=== PATIENT | female | born 1990 | race African-American/Black ===

== ENCOUNTER 2017-03-03 10:39 | Emergency (ER) | payer MEDICAID ==
[~2017-03-03] VITALS: Ht 162.6 cm; Wt 54.4 kg
[~2017-03-03 10:39] MED LIST: ALBUTEROL SULF8.5 GM INH; ALBUTEROL2.5 MG/3 M HHN; AUGMENTIN 875-1 EAC1 ORAL; MUCINEX100 MG PO; NKM; PREDNISONE20 MG ORAL; PROMETH-CODEIN 65 ML PO; PROMETHAZINE-C118 M1 ORAL; ZYRTEC10 MG ORAL
[2017-03-03] MEDS ORDERED: DOXYCYCLINE MO100 MG ORAL (11:25)
--- NOTE | 2017-03-03 11:38 | Diagnostic Imaging Report ---
Indication: COUGH Technique: One view of the chest Comparison: none Findings: Lungs and pleural spaces are clear. Heart size is normal. Impression: No acute process
[2017-03-03] MEDS ORDERED: TESSALON PERLE100 MG ORAL (11:51)
[2017-03-03 12:05] VITALS: BP 127/68
--- NOTE | 2017-03-04 06:47 | Emergency Room Report ---
History of Present Illness General Chief Complaint: Upper Respiratory Illness Source: Patient Present Illness HPI 26 yo female with history of asthma, p/w cough for for days. Productive cough with green and yellow sputum, associated with mild SOB that occurs both at rest and on exertion. Denies chest pain. Patient has been using albuterol inhaler as well as Advair with relief of symptoms. No recent steroid use. Denies fever, chills. Denies sick contacts or recent travel. Patient denies history of ICU admissions, intubations, or usage of BIPAP for asthma. Allergies: Coded Allergies: AZITHROMYCIN (Verified Allergy, Unknown, 12/16/15) Patient History Past Medical History: see triage record Past Surgical History: none Pertinent Family History: none Last Menstrual Period: 02/21/17 Now: No Reviewed Nursing Documentation: PMH: Agreed, PSxH: Agreed Nursing Documentation-PMH Past Medical History: No History, Except For Hx Cardiac Problems: No Hx Hypertension: No Hx Asthma: Yes Hx COPD: No Hx Diabetes: No Hx Cancer: No Hx Gastrointestinal Problems: No Hx Dialysis: No History Of Psychiatric Problem: No Hx Neurological Problems: No Hx Cerebrovascular Accident: No Hx Seizures: No Review of Systems All Other Systems: negative except mentioned in HPI Physical Exam Vital Signs Date Time Temp Pulse Resp B/P (MAP) Pulse Ox O2 Delivery O2 Flow Rate FiO2 03/03/17 10:45 98.4 97 15 112/77 99 Room Air Sp02 EP Interpretation: reviewed, normal General Appearance: normal inspection, well appearing, no apparent distress, alert, GCS 15, non-toxic, other - Well-appearing young female, awake and alert, not in any respiratory distress, conversing in complete sentences. Ambulatory in the ER Head: normocephalic, atraumatic Eyes: bilateral eye normal inspection, bilateral eye PERRL, bilateral eye EOMI ENT: normal ENT inspection, normal pharynx, normal voice, moist mucus membranes Neck: normal inspection, full range of motion, supple Respiratory: no respiratory distress, no retraction, speaking full sentences, other - Mild course breath sounds right base. No wheezing, chest symmetrical Cardiovascular #1: normal inspection, regular rate, rhythm, no edema, normal capillary refill Cardiovascular #2: 2+ radial (R), 2+ radial (L) Gastrointestinal: normal inspection, non tender, soft, non-distended, no guarding Musculoskeletal: normal inspection, back normal, normal range of motion, non- tender Neurologic: normal inspection, alert, oriented x3, responsive, motor strength/ tone normal, sensory intact, normal gait, speech normal Psychiatric: normal inspection, judgement/insight normal, memory normal Skin: normal inspection, normal color, no rash, warm/dry, well hydrated, normal turgor Medical Decision Making Diagnostic Impression: Primary Impression: Pneumonia ER Course 26 yo female with history of asthma p/w cough DDX: asthma exacerbation, pneumonia, upper respiratory infection/viral syndrome Plan: Chest x-ray, at this time patient has very minimal wheezing wheezing and is not in respiratory distress, nebulizer offered to patient however patient refusing and states that she has to go to work and she has a nebulizer at home ER course: CXR: +infiltrate Patient has remained nontoxic appearing, not in respiratory distress. Patient able to tolerate PO antibiotics. Vital signs have been normal. Disposition: Patient is to be discharged to home with antibiotics, doxycycline given as patient is allergic to azithromycin. Strict return precautions discussed with patient such as worsening/severe SOB, worsening cough or hemoptysis, chest pain, fever, chills, which may indicate severe illness. Patient verbalized understanding. Patient is to follow up with their primary care doctor in 2 days. Patient agrees with plan. Please note that this Emergency Department Report was dictated using [employer] software, occasionally this can lead to erroneous entry secondary to interpretation by the dictation equipment. Chest X-Ray Diagnostic Results Chest X-Ray Diagnostic Results : Chest X-Ray Ordered: Yes # of Views/Limited/Complete: 1 View Indication: Shortness of Breath EP Interpretation: Yes Interpretation: no effusion, no pneumothorax, other - R sided infiltrate Impression: Other - R sided pneumonia Electronically Signed by: Electronically signed by Aruna Rhodes MD Last Vital Signs Date Time Temp Pulse Resp B/P (MAP) Pulse Ox O2 Delivery O2 Flow Rate FiO2 03/03/17 12:05 98.2 88 16 127/68 99 Room Air Disposition: HOME, SELF-CARE Condition: Improved Scripts Benzonatate* (TESSALON PERLE*) 100 Mg Capsule 100 MG ORAL THREE TIMES A DAY for 4 Days, #12 PERLE Prov: Aruna Rhodes M.D. 03/03/17 Doxycycline Monohydrate* (DOXYCYCLINE MONOHYDRATE*) 100 Mg Capsule 100 MG ORAL TWICE A DAY for 7 Days, #14 CAP 0 Refills Prov: Aruna Rhodes M.D. 03/03/17 Referrals: [facility] (PCP) Patient Instructions: Upper Respiratory Infection, Adult, [id number] Additional Instructions: Please follow up with your primary care doctor within 3 days. Please take your prescription medication as directed. Please come back to the emergency room if you are having chest pain, shortness of breath, or nausea or vomiting Aruna Rhodes M.D. Mar 04, 2017 06:47
== END 2017-03-03 12:05 | disposition home or self-care (01) ==
LOC: EMR 11:20
DX: J18.9 Pneumonia, unspecified organism (principal); J45.909 Unspecified asthma, uncomplicated; Z88.1 Allergy status to other antibiotic agents
CPT/HCPCS: 71010; 99284